=== PATIENT | male | born 1975 | race Caucasian/White ===

== ENCOUNTER 2023-09-30 11:55 | Emergency (ER) | payer SELFPAY ==
[2023-09-30 12:01] VITALS: BP 116/80; PULSE 79; RESP 16; TEMP 36.7; O2SAT 98; BMI 25.4
--- NOTE | 2023-09-30 12:14 | CT_ITS ---
WS: [id number] CT HEAD NONCONTRAST HISTORY: weakness TECHNIQUE: Contiguous axial imaging performed through the brain in 2.5 mm imaging. Bone and soft tiss ue windows. Sagittal and coronal reformats reviewed. All CT scans at [facility] use at least one of these dose optimization techniques: automated exposure control; mA and/or kV adjustment per pa tient size (includes targeted exams where dose is matched to clinical indication); or iterative recon struction. DLP: 1023.48 mGy.cm COMPARISON: None available. No acute intracranial hemorrhage, midline shift or mass effect. No atrophy or prior infarcts or herniation. Ventricles: Normal size with no hydrocephalus. No inferior displacement of the cerebellar tonsils. Paranasal sinuses: As visualized are clear. Mastoid air cells: Well pneumatized. Calvarium and scalp: Skull is intact with no soft tissue edema or swelling. IMPRESSION: Negative head CT.
--- NOTE | 2023-09-30 12:14 | XRR_ITS ---
PROCEDURE INFORMATION: Exam: XR Chest Exam date and time: 09/30/2023 12:51 PM Age: 48 years old Clinical indication: Other: Weakness TECHNIQUE: Imaging protocol: Radiologic exam of the chest. Views: 1 view. COMPARISON: No relevant prior studies available. FINDINGS: Lungs: Small granuloma in the left lung. No consolidation. Pleural spaces: Unremarkable. No pleural effusion. No pneumothorax. Heart/Mediastinum: Unremarkable. No cardiomegaly. Bones/joints: Unremarkable. XR/XR chest 1V portable [id number] IMPRESSION: No acute findings.
--- NOTE | 2023-09-30 12:15 | ECG_ITS ---
[facility] Test Date: 2023-09-30 Pat Name: Reyes Cloud Department: Room: Gender: Male Back [employer]: : 1975 Requested By: Celso White Order Number: [id number] Lia MD: Larry iJ M.D. Measurements Intervals [place] Rate: 75 P: 48 TN: 156 QRS: 34 QRSD: 93 T: 56 QT: 366 QTc: 409 Interpretive Statements SINUS RHYTHM POSSIBLE LEFT ATRIAL ENLARGEMENT [-0.1mV P-WAVE IN V1/V2] NONSPECIFIC T-WAVE ABNORMALITY No previous ECG available for comparison Electronically Signed On 09-30-2023 13:11:37 CDT by Larry Ji M.D. [id number]
--- NOTE | 2023-09-30 12:21 | ED_ITS ---
HPI - Neuro Symptoms/Deficit 2 General: Chief Complaint: Neuro Symptoms/Deficit Stated Complaint: numbess and tingling left side Time Seen by Provider: 09/30/23 12:14 Source: patient Mode of arrival: ambulatory Limitations: no limitations History of Present Illness: 48-year-old male states been having some intermittent paresthesias to his left arm. States he is numbness currently just in the fingertips he denies any headache denies any chest pain he denies any weakness or slurred speech. No history of this in the past. Associated symptoms: Deny chest pain, headache(s), nausea or vomiting Review of Systems 2 Const: Denies: fever(s), chills, body aches or change in appetite ENMT: Denies: throat pain or dental pain Card: Denies: chest pain Resp: Denies: dyspnea GI: Denies: abdominal pain, nausea, vomiting or diarrhea Musc: Denies: neck pain or back pain Skin/Breast: Denies: rash Neuro: Denies: headache(s) Physical Exam 2 Const: COMMON NORMALS: no acute distress, patient oriented x3 and healthy appearing HENMT: COMMON NORMALS: normocephalic and atraumatic HEAD & SCALP: n ormocephalic and atraumatic Eye: COMMON NORMALS: Equal, round and reactive pupils present PUPIL: Yes Equal, round and reactive pupils present Neck/C-Spine: COMMON NORMALS: full ROM and supple Chest: COMMONS NORMALS: normal inspection of the chest Resp: COMMON NORMALS: normal respiratory effort Cardio: COMMON NORMALS: regular rate, regular rhythm and No murmurs present (Cardio) RATE: regular rate RHYTHM: regular rhythm GI: COMMON NORMALS: Normal to inspection, nondistended, normoactive bowel sounds present, Soft to palpation, non-tender and no masses PALPATION: Yes Soft to palpation Extremity: COMMON NORMALS: normal to inspection and full ROM Neuro: COMMON NORMALS: patient oriented x3, moves all extremities and no focal motor deficits GAIT: Yes Normal gait present MOTOR EXAM: 5/5 motor strength present throughout Psych: COMMON NORMALS: mental status grossly normal, Normal thought process present and cooperative THOUGHT PROCESS: Normal thought process present Skin: COMMON NORMALS: no rashes or lesions noted and no wounds GENERAL SKIN EXAM: no rashes or lesions noted Course 2 Vital Signs: Vital signs: Vital Signs Temperature 98.0 F 09/30/23 12:01 Pulse Rate 71 09/30/23 13:46 Respiratory Rate 16 09/30/23 13:46 Blood Pressure 136/92 09/30/23 13:46 Pulse Oximetry 99 09/30/23 13:46 Oxygen Delivery Me thod Room Air 09/30/23 13:04 MDM - Neuro Symptoms/Deficit Medical Decision Making Patient presents here with paresthesias his imaging and blood work here is all normal patient stable for discharge follow-up PCP return if worsening understand agree to plan Medical Records I reviewed the patient's medical records. Lab Data I reviewed the patient's lab results. 09/30/23 12:25 09/30/23 12:25 Laboratory Results WBC 10.53 10^3/uL (3.29-11.43) 09/30/23 12:25 RBC 5.27 10^6/uL (3.85-5.65) 09/30/23 12:25 Hgb 15.90 g/dL (11.27-16.99) 09/30/23 12:25 Hct 47.5 % (37-53) 09/30/23 12:25 MCV 90.1 fl (82-101) 09/30/23 12:25 MCH 30.2 pg (27-33) 09/30/23 12:25 MCHC 33.5 g/dL (30-55) 09/30/23 12:25 RDW 13.1 % (12.1-15.1) 09/30/23 12:25 Plt Count 385 10^3/cmm (157-399) 09/30/23 12:25 MPV 10.2 fL (7.4-10.4) 09/30/23 12:25 Neut % (Auto) 60.3 % 09/30/23 12:25 Lymph % (Auto) 30.3 % 09/30/23 12:25 [place] % (Auto) 6.4 % 09/30/23 12:25 Eos % (Auto) 1.5 % 09/30/23 12:25 Baso % (Auto) 0.9 % 09/30/23 12:25 Neut # (Auto) 6.36 10^3/uL (1.8-7.7) 09/30/23 12:25 Lymph # (Auto) 3.2 10^3/uL (0.8-4.8) 09/30/23 12:25 [place] # (Auto) 0.7 10^3/uL (0.2-0.9) 09/30/23 12:25 Eos # (Auto) 0.2 10^3/uL (0.0-0.8) 09/30/23 12:25 Baso # (Auto) 0.1 10^3/uL (0.0-0.1) 09/30/23 12:25 Nucleated RBC % (auto) 0 % 09/30/23 12:25 Nucleated RBCs # 0.0 /100WBC 09/30/23 12:25 PT 13.00 SECONDS (12.1-14.9) 09/30/23 12:25 INR 0.96 (0.8-1.2) 09/30/23 12:25 Sodium 137 mmol/L (136-145) 09/30/23 12:25 Potassium 4.2 mmol/L (3.5-5.1) 09/30/23 12:25 Chloride 102 mmol/L (98-107) 09/30/23 12:25 Carbon Dioxide 24 mmol/L (22-29) 09/30/23 12:25 Anion Gap 15.2 (5-19) 09/30/23 12:25 BUN 12 mg/dL (6-20) 09/30/23 12:25 Creatinine 0.7 mg/dL (0.7-1.2) 09/30/23 12:25 GFR Calculation 121.4 mL/min (90-130) 09/30/23 12:25 Glucose 110 mg/dL (65-115) 09/30/23 12:25 Calculated Osmolality 284 mOsm/kg (285-295) L 09/30/23 12:25 Calcium 9.4 mg/dL (8.5-10.5) 09/30/23 12:25 Magnesium 2.1 mg/dL (1.7-2.3) 09/30/23 12:25 Total Bilirubin 0.2 mg/dL (0.15-1.2) 09/30/23 12:25 AST 18 U/L (0-40) 09/30/23 12:25 ALT 29 U/L (0-41) 09/30/23 12:25 Alkaline Phosphatase 78 U/L (40-130) 09/30/23 12:25 Total Protein 7.5 g/dL (6.6-8.7) 09/30/23 12:25 Albumin 4.4 g/dL (3.5-5.2) 09/30/23 12:25 Globulin 3.1 g/dL (1.3-4.6) 09/30/23 12:25 All radiology interpretation(s) finalized by discharge EKG Data EKG 1: I personally reviewed and interpreted this EKG as follows: EKG interpretation date: 09/30/23 EKG interpretation time: 12:19 Interpretation: nsr hr [address] or t wave abnormalites qrs 93 qtc 394 Discharge Plan Discharge Patient Disposition: Home Clinical Impression: Paresthesia Condition: Stable Prescriptions: No Action No Known Home Medications Discharge Orders: Discharge ED (Routine); Ordered 09/30/23 Ordered By: Celso White Referrals: Al Lyles MD [Primary Care Provider] - 1-3 days Discharge Diet: Advance as tolerated Discharge Activity: Resume usual activity Patient Instructions: Paresthesia (ED) Coding Level of Care Code ED Clinical Administrative Coordinator for Leanne Ron
[2023-09-30 12:31] VITALS: BP 142/88; PULSE 77; RESP 19; O2SAT 100
[2023-09-30 12:34] VITALS: PULSE 78; O2SAT 100
[2023-09-30 12:50] LABS: Basophils # 0.1 10^3/uL (0.0-0.1); Basophils % 0.9 %; Eosinophils # 0.2 10^3/uL (0.0-0.8); Eosinophils % 1.5 %; Hematocrit 47.5 % (37-53); Lymphocytes # 3.2 10^3/uL (0.8-4.8); Lymphocytes % 30.3 %; Mean Corpuscular HGB Conc 33.5 g/dL (30-55); Mean Corpuscular Hemoglobin 30.2 pg (27-33); Mean Corpuscular Volume 90.1 fl (82-101); Mean Platelet Volume 10.2 fL (7.4-10.4); Monocytes # 0.7 10^3/uL (0.2-0.9); Monocytes % 6.4 %; Neutrophils # 6.36 10^3/uL (1.8-7.7); Neutrophils % 60.3 %; Nucleated Red Blood Cells % 0 %; Platelet Count 385 10^3/cmm (157-399); Red Blood Count 5.27 10^6/uL (3.85-5.65); Red Cell Distribution Width 13.1 % (12.1-15.1); White Blood Count 10.53 10^3/uL (3.29-11.43)
[2023-09-30] MEDS: sodium chloride 0.9% 500 ML IV (12:54)
--- NOTE | 2023-09-30 13:00 | PC.NURSE ---
pt is on bedside cardiac monitoring
[2023-09-30 13:03] LABS: Alanine Aminotransferase 29 U/L (0-41); Albumin Level 4.4 g/dL (3.5-5.2); Alkaline Phosphatase 78 U/L (40-130); Anion Gap 15.2 (5-19); Aspartate Amino Transferase 18 U/L (0-40); Blood Urea Nitrogen 12 mg/dL (6-20); Calcium 9.4 mg/dL (8.5-10.5); Carbon Dioxide 24 mmol/L (22-29); Chloride 102 mmol/L (98-107); Creatinine Clr Calc Pharmacy 133.0548; Globulin 3.1 g/dL (1.3-4.6); Glomerular Filtration Rate 121.4 mL/min (90-130); Glucose 110 mg/dL (65-115); Magnesium 2.1 mg/dL (1.7-2.3); Osmolality Calculated 284 mOsm/kg (285-295); Potassium 4.2 mmol/L (3.5-5.1); Sodium 137 mmol/L (136-145); Total Bilirubin 0.2 mg/dL (0.15-1.2); Total Protein 7.5 g/dL (6.6-8.7)
[2023-09-30 13:04] VITALS: PULSE 65; O2SAT 100
[2023-09-30 13:06] LABS: INR 0.96 (0.8-1.2)
[2023-09-30 13:46] VITALS: BP 136/92; PULSE 71; RESP 16; O2SAT 99
== END 2023-09-30 13:51 | disposition home or self-care (01) ==
PROVIDERS: Emergency Provider Emergency Medicine; PCP Family Medicine
DX: R20.2 Paresthesia of skin (principal)
CPT/HCPCS: 70450; 71045; 80053; 83735; 85025; 85610; 93005; 96360; 99285; J7040